=== PATIENT | male | born 1955 | race Hispanic/Latino ===

== ENCOUNTER 2018-07-31 13:16 | Inpatient (IN) | payer OTHER ==
[~2018-07-31] VITALS: Ht 172.7 cm; Wt 106.6 kg
[2018-07-31 14:00] VITALS: BP 126/74
[2018-07-31] MEDS ORDERED: ONDANSETRON HCL 4 MG/2 ML VIAL IVP PRN (14:30)
[2018-07-31] MEDS ORDERED: SODIUM CHLORIDE 0.9% 10 ML VIAL IVP SCH (14:30)
[2018-07-31] MEDS ORDERED: GUAIFENESIN SUGAR-FREE 100 MG/5 ML UDCUP PO PRN (14:30)
[2018-07-31] MEDS ORDERED: GUAIFENESIN-DM 200/20 MG 10 ML PO PRN (14:30)
[2018-07-31] MEDS ORDERED: DIPHENHYDRAMINE HCL 25 MG CAPSULE PO PRN (14:30)
[2018-07-31] MEDS ORDERED: POTASSIUM CHLORIDE 10% ELIXIR 20 MEQ/15 ML UDCUP PO PRN (14:30)
[2018-07-31] MEDS ORDERED: LACTULOSE 20 GM/30 ML UDCUP PO PRN (14:30)
[2018-07-31] MEDS ORDERED: GLUCAGON 1MG KIT 1 MG ML IM PRN (14:30)
[2018-07-31] MEDS ORDERED: MAG HYDROX/AL HYDROX/SIMETH ES 30 ML SUSP UDCUP PO PRN (14:30)
[2018-07-31] MEDS ORDERED: POTASSIUM CHLORIDE 20MEQ/100ML 100 ML IV PRN (14:30)
[2018-07-31] MEDS ORDERED: ZOLPIDEM TARTRATE 5 MG TAB PO PRN (14:30)
[2018-07-31] MEDS ORDERED: POTASSIUM CHLORIDE 20 MEQ ERTAB PO PRN (14:30)
[2018-07-31] MEDS ORDERED: LIDOCAINE HCL-MPF 1% 2ML VIAL IJ PRN (14:30)
[2018-07-31] MEDS ORDERED: DiphenhydrAMINE HCL 50 MG/ML VIAL IVP PRN (14:30)
[2018-07-31] MEDS ORDERED: ACETAMINOPHEN 325 MG TAB PO PRN ×2 (14:30)
[2018-07-31] MEDS ORDERED: NITROGLYCERIN 0.4 MG SL TAB SL PRN (14:30)
[2018-07-31] MEDS ORDERED: DEXTROSE 50%-WATER 50 ML DISP.SYRIN IV PRN (14:30)
[2018-07-31] MEDS ORDERED: IPRATROPIUM/ALBUTEROL SULFATE 3 ML SOLUTION IH PRN ×2 (14:30)
[2018-07-31 14:51] LABS: HEMATOCRIT 43.9 % (36-48); MEAN CORPUSCULAR HGB CONC 34.3 g/dL (32.0-36.0); MEAN CORPUSCULAR VOLUME 87.3 fL (79-99); PLATELET COUNT (AUTO) 283 K/uL (130-400); RED BLOOD CELL COUNT(AUTO) 5.03 MIL/uL (4.00-5.50); RED CELL DISTRIBUTION WIDTH 14.1 % (11.0-15.5); WHITE BLOOD COUNT (AUTO) 9.8 K/uL (4.8-10.8)
[2018-07-31 15:17] LABS: BILIRUBIN,TOTAL 0.3 mg/dL (0.2-1.0); CREATININE 1.5 mg/dL (0.5-1.5); POTASSIUM 4.2 mmol/L (3.5-5.1)
[2018-07-31] MEDS ORDERED: VANCOMYCIN 1GM+NS 250ML 250 ML IV SCH (16:15)
[2018-07-31] MEDS ORDERED: COMPOUND IV REFRIGERATED 1 EACH IVSOLN MISC PRN (16:15)
[2018-07-31] MEDS: INSULIN R PO SSI SQ SCH ×2 (16:30→21:00)
[2018-07-31] MEDS ORDERED: LISI1TAB13 PO (17:26)
[2018-07-31] MEDS ORDERED: METF-444 PO (17:26)
[2018-07-31 20:00] VITALS: BP 108/73
[2018-07-31] MEDS: ZOSYN 3.375GM+NS 50ML 50 ML IV SCH (21:20)
[2018-07-31] MEDS: FAMOTIDINE 20MG TAB 20 MG TAB PO SCH (21:20)
[2018-08-01] VITALS: BP 107/67
[2018-08-01 04:00] VITALS: BP 109/69
[2018-08-01] MEDS: ZOSYN 3.375GM+NS 50ML 50 ML IV SCH ×3 (05:01→22:00)
[2018-08-01] MEDS: INSULIN R PO SSI SQ SCH ×4 (05:51→21:00)
[2018-08-01 08:00] VITALS: BP 127/87
[2018-08-01] MEDS ORDERED: DOCUSATE SODIUM 100 MG CAP PO PRN (08:45)
[2018-08-01] MEDS: FAMOTIDINE 20MG TAB 20 MG TAB PO SCH ×2 (08:54→22:00)
[2018-08-01] MEDS: VANCOMYCIN 750MG + NS 250 ML IV SCH ×2 (08:55)
[2018-08-01] MEDS ORDERED: MUPI22O TP (09:54)
[2018-08-01 11:00] VITALS: BP 136/69
[2018-08-01 16:00] VITALS: BP 104/60
[2018-08-01 19:48] VITALS: BP 116/69
[2018-08-01] MEDS: MUPIROCIN OINTMENT 22 GM TUBE TP SCH (21:00)
[2018-08-02] VITALS: BP 108/61
[2018-08-02 04:08] LABS: MEAN CORPUSCULAR HEMOGLOBIN 29.9 pg (27.0-33.0); MEAN CORPUSCULAR HGB CONC 33.9 g/dL (32.0-36.0); MEAN CORPUSCULAR VOLUME 88.1 fL (79-99); PLATELET COUNT (AUTO) 228 K/uL (130-400); RED BLOOD CELL COUNT(AUTO) 4.77 MIL/uL (4.00-5.50); RED CELL DISTRIBUTION WIDTH 14.2 % (11.0-15.5)
[2018-08-02 04:10] VITALS: BP 129/64
[2018-08-02 04:22] LABS: CREATININE 1.1 mg/dL (0.5-1.5); POTASSIUM 4.1 mmol/L (3.5-5.1)
[2018-08-02] MEDS: ZOSYN 3.375GM+NS 50ML 50 ML IV SCH ×3 (05:11→21:00)
[2018-08-02] MEDS: INSULIN R PO SSI SQ SCH ×4 (07:04→21:00)
[2018-08-02 08:00] VITALS: BP 123/70
[2018-08-02] MEDS: FAMOTIDINE 20MG TAB 20 MG TAB PO SCH ×2 (10:31→21:42)
[2018-08-02] MEDS: HYDROCHLOROTHIAZIDE 25 MG TABLET PO SCH (10:31)
[2018-08-02] MEDS: LISINOPRIL 20 MG TABLET PO SCH (10:31)
[2018-08-02] MEDS: MUPIROCIN OINTMENT 22 GM TUBE TP SCH ×2 (10:42→21:44)
[2018-08-02] MEDS: VANCOMYCIN 750MG + NS 250 ML IV SCH ×2 (10:42)
[2018-08-02 11:00] VITALS: BP 122/80
[2018-08-02 16:00] VITALS: BP 117/73
[2018-08-02] MEDS: METFORMIN HCL 500 MG TABLET PO SCH (17:00)
[2018-08-02 19:30] VITALS: BP 129/79
[2018-08-03] VITALS (7 sets, daily range): BP systolic 109–131; BP diastolic 60–77
[2018-08-03] MEDS: ZOSYN 3.375GM+NS 50ML 50 ML IV SCH ×3 (05:04→21:19)
[2018-08-03] MEDS: INSULIN R PO SSI SQ SCH ×4 (07:30→21:00)
[2018-08-03] MEDS: METFORMIN HCL 500 MG TABLET PO SCH ×2 (10:25→18:33)
[2018-08-03] MEDS: HYDROCHLOROTHIAZIDE 25 MG TABLET PO SCH (10:25)
[2018-08-03] MEDS: LISINOPRIL 20 MG TABLET PO SCH (10:25)
[2018-08-03] MEDS: VANCOMYCIN 1.25 GM in SODIUM CHLORIDE 0.9% 250 ML IV SCH ×2 (10:25→21:18)
[2018-08-03] MEDS: FAMOTIDINE 20MG TAB 20 MG TAB PO SCH ×2 (10:25→21:51)
[2018-08-03] MEDS: MUPIROCIN OINTMENT 22 GM TUBE TP SCH ×2 (10:26→21:16)
[2018-08-03 18:32] LABS: HEMOGLOBIN A1C 6.3 % (4.0-6.0)
[2018-08-04 03:33] VITALS: BP 102/65
[2018-08-04 04:57] LABS: INR 1.08 (0.85-1.15); PARTIAL THROMBOPLASTIN TIME 34.5 SEC (26.3-35.5); PROTHROMBIN TIME 11.3 SEC (9.6-11.6)
[2018-08-04] MEDS: ZOSYN 3.375GM+NS 50ML 50 ML IV SCH ×3 (05:02→22:01)
[2018-08-04] MEDS: INSULIN R PO SSI SQ SCH ×4 (07:30→21:00)
[2018-08-04 08:03] VITALS: BP 108/66
[2018-08-04] MEDS: HYDROCHLOROTHIAZIDE 25 MG TABLET PO SCH (09:06)
[2018-08-04] MEDS: LISINOPRIL 20 MG TABLET PO SCH (09:06)
[2018-08-04] MEDS: METFORMIN HCL 500 MG TABLET PO SCH ×2 (09:06→17:00)
[2018-08-04] MEDS: FAMOTIDINE 20MG TAB 20 MG TAB PO SCH ×2 (09:06→22:01)
[2018-08-04] MEDS: MUPIROCIN OINTMENT 22 GM TUBE TP SCH ×2 (09:10→22:09)
[2018-08-04] MEDS: VANCOMYCIN 1.25 GM in SODIUM CHLORIDE 0.9% 250 ML IV SCH ×2 (10:37→22:01)
[2018-08-04 11:46] VITALS: BP 121/64
[2018-08-04 16:39] VITALS: BP 130/71
[2018-08-04 19:18] VITALS: BP 112/75
[2018-08-04 23:03] VITALS: BP 140/74
[2018-08-05 03:15] VITALS: BP_SYST 129; BP_SYST 130; BP_DIAS 68; BP_DIAS 73
[2018-08-05] MEDS: ZOSYN 3.375GM+NS 50ML 50 ML IV SCH ×3 (04:33→22:42)
[2018-08-05 08:19] VITALS: BP_SYST 124; BP_SYST 188; BP_DIAS 74; BP_DIAS 99
[2018-08-05] MEDS: HYDROCHLOROTHIAZIDE 25 MG TABLET PO SCH (08:46)
[2018-08-05] MEDS: METFORMIN HCL 500 MG TABLET PO SCH ×2 (08:46→17:00)
[2018-08-05] MEDS: FAMOTIDINE 20MG TAB 20 MG TAB PO SCH ×2 (08:46→21:04)
[2018-08-05] MEDS: LISINOPRIL 20 MG TABLET PO SCH (08:46)
[2018-08-05] MEDS: VANCOMYCIN 1.5 GM in SODIUM CHLORIDE 0.9% 250 ML IV SCH ×2 (08:54→21:05)
[2018-08-05] MEDS: MUPIROCIN OINTMENT 22 GM TUBE TP SCH ×2 (08:54→21:16)
[2018-08-05 12:05] VITALS: BP 152/87
[2018-08-05 16:10] VITALS: BP 138/78
[2018-08-05 19:00] VITALS: BP 139/72
[2018-08-05 23:21] VITALS: BP 116/77
[2018-08-06 03:47] VITALS: BP 125/88
[2018-08-06] MEDS: ZOSYN 3.375GM+NS 50ML 50 ML IV SCH ×3 (06:07→20:19)
[2018-08-06 07:30] VITALS: BP 120/78
[2018-08-06] MEDS: HYDROCHLOROTHIAZIDE 25 MG TABLET PO SCH (08:22)
[2018-08-06] MEDS: FAMOTIDINE 20MG TAB 20 MG TAB PO SCH ×2 (08:22→20:18)
[2018-08-06] MEDS: METFORMIN HCL 500 MG TABLET PO SCH ×2 (08:22→17:00)
[2018-08-06] MEDS: LISINOPRIL 20 MG TABLET PO SCH (08:22)
[2018-08-06] MEDS: MUPIROCIN OINTMENT 22 GM TUBE TP SCH ×2 (08:23→20:25)
[2018-08-06] MEDS: VANCOMYCIN 1.5 GM in SODIUM CHLORIDE 0.9% 250 ML IV SCH (08:23)
[2018-08-06 11:00] VITALS: BP 123/72
[2018-08-06 16:00] VITALS: BP 137/74
[2018-08-06 20:00] VITALS: BP 127/76
[2018-08-06] MEDS: VANCOMYCIN 1.75 GM in SODIUM CHLORIDE 0.9% 250 ML IV SCH (22:25)
[2018-08-07] VITALS: BP 123/73
[2018-08-07 04:00] VITALS: BP 131/78
[2018-08-07] MEDS: ZOSYN 3.375GM+NS 50ML 50 ML IV SCH ×2 (04:50→13:00)
[2018-08-07 07:30] VITALS: BP 125/84
[2018-08-07] MEDS: LISINOPRIL 20 MG TABLET PO SCH (09:45)
[2018-08-07] MEDS: METFORMIN HCL 500 MG TABLET PO SCH ×2 (09:46→17:57)
[2018-08-07] MEDS: FAMOTIDINE 20MG TAB 20 MG TAB PO SCH (09:46)
[2018-08-07] MEDS: HYDROCHLOROTHIAZIDE 25 MG TABLET PO SCH (09:46)
[2018-08-07] MEDS: MUPIROCIN OINTMENT 22 GM TUBE TP SCH (09:46)
[2018-08-07] MEDS: VANCOMYCIN 1.75 GM in SODIUM CHLORIDE 0.9% 250 ML IV SCH (09:59)
[2018-08-07 11:00] VITALS: BP 111/64
[2018-08-07 16:00] VITALS: BP 114/66
== END 2018-08-07 19:05 | disposition home or self-care (01) | DRG 603 ==
LOC: EDH 13:16 → EDSEX 13:50 → EDHIP 13:50 → 3DH 14:07
PROVIDERS: ADMIT Family Medicine; ATTEND Family Medicine
PROC: 02HV33Z Insertion of Infusion Device into Superior Vena Cava, Percutaneous Approach (ICD-10-PCS; principal; 2018-08-04)
DX: L02.31 Cutaneous abscess of buttock (principal); I10 Essential (primary) hypertension; E11.9 Type 2 diabetes mellitus without complications; B96.20 Unspecified Escherichia coli [E. coli] as the cause of diseases classified elsewhere; Z16.12 Extended spectrum beta lactamase (ESBL) resistance
CPT/HCPCS: 36415; 71045; 80048; 80053; 80202; 82948; 83036; 85027; 85610; 85730; 87040; 87070; 87076; 87077; 87186; 94664; J2543; J3370; J7030

== ENCOUNTER 2018-08-27 18:14 | Inpatient (IN) | payer OTHER ==
[~2018-08-27] VITALS: Ht 172.7 cm; Wt 106.6 kg
[~2018-08-27 18:14] MED LIST: LISI1TAB13 PO; METF-444 PO; MUPI22O TP
[2018-08-27 20:00] VITALS: BP 132/72
[2018-08-27] MEDS ORDERED: COMPOUND IV REFRIGERATED 1 EACH IVSOLN MISC PRN (20:45)
[2018-08-27] MEDS: INSULIN R PO SSI SQ SCH (21:00)
[2018-08-27] MEDS ORDERED: ZOLPIDEM TARTRATE 5 MG TAB PO PRN (21:00)
[2018-08-27] MEDS ORDERED: GLUCAGON 1MG KIT 1 MG ML IM PRN (21:00)
[2018-08-27] MEDS ORDERED: POTASSIUM CHLORIDE 10% ELIXIR 20 MEQ/15 ML UDCUP PO PRN (21:00)
[2018-08-27] MEDS ORDERED: GUAIFENESIN SUGAR-FREE 100 MG/5 ML UDCUP PO PRN (21:00)
[2018-08-27] MEDS ORDERED: POTASSIUM CHLORIDE 20MEQ/100ML 100 ML IV PRN (21:00)
[2018-08-27] MEDS ORDERED: LACTULOSE 20 GM/30 ML UDCUP PO PRN (21:00)
[2018-08-27] MEDS ORDERED: ONDANSETRON HCL 4 MG/2 ML VIAL IVP PRN (21:00)
[2018-08-27] MEDS ORDERED: IPRATROPIUM/ALBUTEROL SULFATE 3 ML SOLUTION IH PRN (21:00)
[2018-08-27] MEDS ORDERED: DEXTROSE 50%-WATER 50 ML DISP.SYRIN IV PRN (21:00)
[2018-08-27] MEDS ORDERED: LIDOCAINE HCL-MPF 1% 2ML VIAL IJ PRN (21:00)
[2018-08-27] MEDS ORDERED: DiphenhydrAMINE HCL 50 MG/ML VIAL IVP PRN (21:00)
[2018-08-27] MEDS ORDERED: ACETAMINOPHEN 325 MG TAB PO PRN ×2 (21:00)
[2018-08-27] MEDS ORDERED: NITROGLYCERIN 0.4 MG SL TAB SL PRN (21:00)
[2018-08-27] MEDS ORDERED: POTASSIUM CHLORIDE 20 MEQ ERTAB PO PRN (21:00)
[2018-08-27] MEDS ORDERED: CLONIDINE HCL 0.1 MG TABLET PO PRN (21:00)
[2018-08-27] MEDS ORDERED: MAG HYDROX/AL HYDROX/SIMETH ES 30 ML SUSP UDCUP PO PRN (21:00)
[2018-08-27] MEDS ORDERED: DIPHENHYDRAMINE HCL 25 MG CAPSULE PO PRN (21:00)
[2018-08-27] MEDS: AMIKACIN SULFATE IV SCH (21:08)
[2018-08-27] MEDS: FAMOTIDINE 20MG TAB 20 MG TAB PO SCH (21:08)
[2018-08-27] MEDS: SODIUM CHLORIDE 0.9% 1000ML 1,000 ML IV SCH (21:08)
[2018-08-27] MEDS: SODIUM CHLORIDE 0.9% IV SCH (21:08)
[2018-08-27 22:06] LABS: HEMATOCRIT 40.2 % (42-54); MEAN CORPUSCULAR HEMOGLOBIN 29.3 pg (27.0-33.0); MEAN CORPUSCULAR HGB CONC 33.8 g/dL (32.0-36.0); MEAN CORPUSCULAR VOLUME 86.6 fL (79-99); PLATELET COUNT (AUTO) 259 K/uL (130-400); RED BLOOD CELL COUNT(AUTO) 4.64 MIL/uL (4.50-6.20); RED CELL DISTRIBUTION WIDTH 13.8 % (11.0-15.5); WHITE BLOOD COUNT (AUTO) 8.9 K/uL (4.8-10.8)
[2018-08-27 22:31] LABS: ALBUMIN 3.6 g/dL (3.5-5.0); BILIRUBIN,TOTAL 0.3 mg/dL (0.2-1.0); CREATININE 1.1 mg/dL (0.5-1.5); POTASSIUM 3.6 mmol/L (3.5-5.1); TOTAL PROTEIN, SERUM 7.7 g/dL (6.0-8.3)
[2018-08-27 23:12] VITALS: BP 119/79
[2018-08-28 03:26] VITALS: BP 125/73
[2018-08-28] MEDS: SODIUM CHLORIDE 0.9% 1000ML 1,000 ML IV SCH ×3 (04:46→20:38)
[2018-08-28] MEDS: INSULIN R PO SSI SQ SCH ×4 (05:58→20:38)
[2018-08-28 07:00] VITALS: BP 133/80
[2018-08-28] MEDS: FAMOTIDINE 20MG TAB 20 MG TAB PO SCH ×2 (07:31→20:38)
[2018-08-28] MEDS: SODIUM CHLORIDE 0.9% IV SCH ×2 (07:31→20:38)
[2018-08-28] MEDS: AMIKACIN SULFATE IV SCH ×2 (07:31→20:38)
[2018-08-28] MEDS ORDERED: DOCUSATE SODIUM 100 MG CAP PO PRN (09:00)
[2018-08-28 11:00] VITALS: BP 122/69
[2018-08-28 16:00] VITALS: BP 164/97
[2018-08-28 20:00] VITALS: BP 112/65
[2018-08-28 23:43] VITALS: BP 121/78
[2018-08-29] VITALS (24 sets, daily range): BP systolic 105–144; BP diastolic 62–90
[2018-08-29] MEDS: SODIUM CHLORIDE 0.9% 1000ML 1,000 ML IV SCH ×2 (04:37→20:56)
[2018-08-29 04:46] LABS: HEMATOCRIT 41.9 % (42-54); MEAN CORPUSCULAR HEMOGLOBIN 29.3 pg (27.0-33.0); MEAN CORPUSCULAR HGB CONC 33.6 g/dL (32.0-36.0); MEAN CORPUSCULAR VOLUME 87.3 fL (79-99); PLATELET COUNT (AUTO) 233 K/uL (130-400); RED CELL DISTRIBUTION WIDTH 13.7 % (11.0-15.5); WHITE BLOOD COUNT (AUTO) 8.3 K/uL (4.8-10.8)
[2018-08-29 04:58] LABS: CREATININE 0.8 mg/dL (0.5-1.5)
[2018-08-29] MEDS ORDERED: METOCLOPRAMIDE 10 MG/2 ML VIAL IVP SCH (05:45)
[2018-08-29] MEDS: INSULIN R PO SSI SQ SCH ×4 (06:03→20:55)
[2018-08-29] MEDS ORDERED: SUCCINYLCHOLINE CHLORIDE 20 MG/ML 10 ML VIAL ONE (06:12)
[2018-08-29] MEDS ORDERED: MIDAZOLAM HCL 1 MG/ML 2ML VIAL ONE (06:12)
[2018-08-29] MEDS ORDERED: LIDOCAINE PF 2% 5ML ABBOJECT ONE (06:12)
[2018-08-29] MEDS ORDERED: FENTANYL CITRATE PF 50 MCG/1 ML 2ML VIAL ONE (06:13)
[2018-08-29] MEDS ORDERED: PROPOFOL 10 MG/ML 20ML VIAL IV ONE (06:13)
[2018-08-29] MEDS ORDERED: MORPHINE SULFATE 5 MG/ML VIAL IV PRN (08:30)
[2018-08-29] MEDS: HYDROCHLOROTHIAZIDE 25 MG TABLET PO SCH (09:00)
[2018-08-29] MEDS: LISINOPRIL 20 MG TABLET PO SCH (09:00)
[2018-08-29] MEDS: AMIKACIN SULFATE IV SCH ×2 (09:34→20:55)
[2018-08-29] MEDS: SODIUM CHLORIDE 0.9% IV SCH ×2 (09:34→20:55)
[2018-08-29] MEDS: FAMOTIDINE 20MG TAB 20 MG TAB PO SCH ×2 (09:47→20:55)
[2018-08-30] VITALS: BP 109/67
[2018-08-30 04:00] VITALS: BP 120/68
[2018-08-30] MEDS: SODIUM CHLORIDE 0.9% 1000ML 1,000 ML IV SCH ×2 (06:04→21:03)
[2018-08-30] MEDS: INSULIN R PO SSI SQ SCH ×4 (06:04→20:57)
[2018-08-30 06:21] LABS: HEMATOCRIT 41.7 % (42-54); MEAN CORPUSCULAR HEMOGLOBIN 28.5 pg (27.0-33.0); MEAN CORPUSCULAR HGB CONC 32.8 g/dL (32.0-36.0); MEAN CORPUSCULAR VOLUME 86.8 fL (79-99); PLATELET COUNT (AUTO) 212 K/uL (130-400); RED BLOOD CELL COUNT(AUTO) 4.81 MIL/uL (4.50-6.20); RED CELL DISTRIBUTION WIDTH 13.9 % (11.0-15.5); WHITE BLOOD COUNT (AUTO) 9.7 K/uL (4.8-10.8)
[2018-08-30 08:15] VITALS: BP 118/71
[2018-08-30] MEDS: HYDROCHLOROTHIAZIDE 25 MG TABLET PO SCH (08:50)
[2018-08-30] MEDS: LISINOPRIL 20 MG TABLET PO SCH (08:50)
[2018-08-30] MEDS: FAMOTIDINE 20MG TAB 20 MG TAB PO SCH ×2 (08:50→20:57)
[2018-08-30] MEDS: SODIUM CHLORIDE 0.9% IV SCH ×2 (08:57→20:57)
[2018-08-30] MEDS: AMIKACIN SULFATE IV SCH ×2 (08:57→20:57)
[2018-08-30 11:39] VITALS: BP_SYST 142; BP_SYST 148; BP_DIAS 77; BP_DIAS 79
[2018-08-30 16:09] VITALS: BP 125/71
[2018-08-30 19:00] VITALS: BP 133/74
[2018-08-31] VITALS (7 sets, daily range): BP systolic 130–150; BP diastolic 66–90
[2018-08-31] MEDS: SODIUM CHLORIDE 0.9% 1000ML 1,000 ML IV SCH ×3 (05:19→20:00)
[2018-08-31 05:43] LABS: HEMATOCRIT 40.2 % (42-54); MEAN CORPUSCULAR HEMOGLOBIN 29.4 pg (27.0-33.0); MEAN CORPUSCULAR HGB CONC 33.9 g/dL (32.0-36.0); MEAN CORPUSCULAR VOLUME 86.7 fL (79-99); PLATELET COUNT (AUTO) 202 K/uL (130-400); RED BLOOD CELL COUNT(AUTO) 4.64 MIL/uL (4.50-6.20); RED CELL DISTRIBUTION WIDTH 13.7 % (11.0-15.5); WHITE BLOOD COUNT (AUTO) 7.6 K/uL (4.8-10.8)
[2018-08-31] MEDS: INSULIN R PO SSI SQ SCH ×4 (06:39→20:08)
[2018-08-31] MEDS: HYDROCHLOROTHIAZIDE 25 MG TABLET PO SCH (09:23)
[2018-08-31] MEDS: LISINOPRIL 20 MG TABLET PO SCH (09:23)
[2018-08-31] MEDS: FAMOTIDINE 20MG TAB 20 MG TAB PO SCH ×2 (09:23→20:00)
[2018-08-31] MEDS: AMIKACIN SULFATE IV SCH ×2 (09:24→20:00)
[2018-08-31] MEDS: SODIUM CHLORIDE 0.9% IV SCH ×2 (09:24→20:00)
[2018-09-01 03:16] VITALS: BP 118/63
[2018-09-01] MEDS: SODIUM CHLORIDE 0.9% 1000ML 1,000 ML IV SCH ×2 (04:27→12:52)
[2018-09-01] MEDS: INSULIN R PO SSI SQ SCH ×4 (06:25→21:00)
[2018-09-01 08:14] VITALS: BP 152/86
[2018-09-01] MEDS: HYDROCHLOROTHIAZIDE 25 MG TABLET PO SCH (09:14)
[2018-09-01] MEDS: FAMOTIDINE 20MG TAB 20 MG TAB PO SCH ×2 (09:14→20:02)
[2018-09-01] MEDS: LISINOPRIL 20 MG TABLET PO SCH (09:14)
[2018-09-01] MEDS: SODIUM CHLORIDE 0.9% IV SCH ×2 (09:15→20:02)
[2018-09-01] MEDS: AMIKACIN SULFATE IV SCH ×2 (09:15→20:02)
[2018-09-01 12:02] VITALS: BP 123/69
[2018-09-01] MEDS: MEROPENEM 1 GM VIAL IVP SCH ×2 (12:30→17:04)
[2018-09-01 15:55] VITALS: BP 142/77
[2018-09-01 19:13] VITALS: BP 131/76
[2018-09-01 23:16] VITALS: BP 139/74
[2018-09-02] VITALS: BP 148/77
[2018-09-02] MEDS: MEROPENEM 1 GM VIAL IVP SCH ×3 (01:02→18:04)
[2018-09-02 03:18] VITALS: BP 133/79
[2018-09-02] MEDS: SODIUM CHLORIDE 0.9% 1000ML 1,000 ML IV SCH ×4 (05:42→20:11)
[2018-09-02] MEDS: INSULIN R PO SSI SQ SCH ×4 (05:43→21:00)
[2018-09-02 08:18] VITALS: BP 127/75
[2018-09-02] MEDS: SODIUM CHLORIDE 0.9% IV SCH ×2 (09:17→20:08)
[2018-09-02] MEDS: AMIKACIN SULFATE IV SCH ×2 (09:17→20:08)
[2018-09-02] MEDS: HYDROCHLOROTHIAZIDE 25 MG TABLET PO SCH (09:18)
[2018-09-02] MEDS: LISINOPRIL 20 MG TABLET PO SCH (09:18)
[2018-09-02] MEDS: FAMOTIDINE 20MG TAB 20 MG TAB PO SCH ×2 (09:18→20:08)
[2018-09-02 12:07] VITALS: BP 129/75
[2018-09-02 16:21] VITALS: BP 144/82
[2018-09-02 19:00] VITALS: BP 114/67
[2018-09-03] VITALS: BP 132/83
[2018-09-03] MEDS: MEROPENEM 1 GM VIAL IVP SCH ×3 (01:21→17:19)
[2018-09-03 03:51] VITALS: BP 125/71
[2018-09-03] MEDS: SODIUM CHLORIDE 0.9% 1000ML 1,000 ML IV SCH (04:14)
[2018-09-03 07:00] VITALS: BP 138/88
[2018-09-03] MEDS: INSULIN R PO SSI SQ SCH ×4 (07:30→20:29)
[2018-09-03] MEDS: SODIUM CHLORIDE 0.9% IV SCH ×2 (09:45→22:01)
[2018-09-03] MEDS: LISINOPRIL 20 MG TABLET PO SCH (09:45)
[2018-09-03] MEDS: AMIKACIN SULFATE IV SCH ×2 (09:45→22:01)
[2018-09-03] MEDS: FAMOTIDINE 20MG TAB 20 MG TAB PO SCH ×2 (09:45→22:00)
[2018-09-03] MEDS: HYDROCHLOROTHIAZIDE 25 MG TABLET PO SCH (09:46)
[2018-09-03 11:00] VITALS: BP 118/76
[2018-09-03 15:50] VITALS: BP 147/80
[2018-09-03 19:00] VITALS: BP 138/79
[2018-09-04] MEDS: MEROPENEM 1 GM VIAL IVP SCH ×2 (00:45→09:52)
[2018-09-04 04:00] VITALS: BP 134/84
[2018-09-04 05:05] LABS: HEMATOCRIT 42.3 % (42-54); MEAN CORPUSCULAR HEMOGLOBIN 29.5 pg (27.0-33.0); MEAN CORPUSCULAR VOLUME 86.9 fL (79-99); NUCLEATED RED BLOOD CELLS 0.1 % (0.0-0.19); PLATELET COUNT (AUTO) 254 K/uL (130-400); RED BLOOD CELL COUNT(AUTO) 4.87 MIL/uL (4.50-6.20); RED CELL DISTRIBUTION WIDTH 13.7 % (11.0-15.5); WHITE BLOOD COUNT (AUTO) 9.2 K/uL (4.8-10.8)
[2018-09-04] MEDS: INSULIN R PO SSI SQ SCH ×2 (06:20→11:30)
[2018-09-04 07:00] VITALS: BP 130/73
[2018-09-04] MEDS: AMIKACIN SULFATE IV SCH (09:49)
[2018-09-04] MEDS: SODIUM CHLORIDE 0.9% IV SCH (09:49)
[2018-09-04] MEDS: HYDROCHLOROTHIAZIDE 25 MG TABLET PO SCH (09:52)
[2018-09-04] MEDS: LISINOPRIL 20 MG TABLET PO SCH (09:53)
[2018-09-04] MEDS: FAMOTIDINE 20MG TAB 20 MG TAB PO SCH (09:53)
[2018-09-04 11:00] VITALS: BP 132/70
== END 2018-09-04 15:11 | DRG 572 ==
LOC: EDH 18:14 → EDHIP 19:00 → 3DH 19:45
PROVIDERS: ADMIT Family Medicine; ATTEND Family Medicine
PROC: 0JB90ZZ Excision of Buttock Subcutaneous Tissue and Fascia, Open Approach (ICD-10-PCS; principal; 2018-08-29 06:19)
DX: L02.31 Cutaneous abscess of buttock (principal); I10 Essential (primary) hypertension; Z16.12 Extended spectrum beta lactamase (ESBL) resistance; E11.9 Type 2 diabetes mellitus without complications; Z28.21 Immunization not carried out because of patient refusal; Z90.49 Acquired absence of other specified parts of digestive tract
CPT/HCPCS: 36415; 80048; 80053; 82948; 85027; 87070; 87076; 87077; 87186; 88304; 93005; 94664; A4218; J0278; J0330; J2001; J2185; J2250; J2704; J2765; J3010; J7030

== ENCOUNTER 2020-11-25 16:47 | Inpatient (IN) | payer OTHER ==
[~2020-11-25] VITALS: Ht 172.7 cm; Wt 99.8 kg
[~2020-11-25 16:47] MED LIST changes: +ATOR40TA69 PO; -LISI1TAB13 PO; +LISI1TAB53 PO; -MUPI22O TP; +OMEGA ACID ETHYL PO; +VITAMIN B12 PO; +VITAMIN D3 PO
[2020-11-25] MEDS ORDERED: AZITHROMYCIN 500MG+NS 250ML 250 ML IV ONE (19:04)
[2020-11-25] MEDS ORDERED: ALBUTEROL INHALER 90MCG/INH IH ONE (19:04)
[2020-11-25] MEDS ORDERED: DEXAMETHASONE SOD PHOSPHATE 10MG/ML 1ML VIAL ONE (19:04)
[2020-11-25] MEDS ORDERED: ENOXAPARIN SODIUM 120 MG/0.8ML SQ ONE (19:05)
[2020-11-25] MEDS ORDERED: FAMOTIDINE 20MG VIAL IV ONE (19:06)
[2020-11-25 19:36] LABS: BASOPHILS % (AUTO) 0.1 % (0.0-5.0); HEMATOCRIT 41.5 % (42-54); LYMPHOCYTES % (AUTO) 15.5 % (21.0-51.0); MEAN CORPUSCULAR HEMOGLOBIN 29.1 pg (27.0-33.0); MEAN CORPUSCULAR HGB CONC 34.2 g/dL (32.0-36.0); MONOCYTES % (AUTO) 6.1 % (3.0-13.0); NEUTROPHILS % (AUTO) 77.7 % (40.0-77.0); PLATELET COUNT (AUTO) 217 K/uL (130-400); RED BLOOD CELL COUNT(AUTO) 4.88 MIL/uL (4.50-6.20); RED CELL DISTRIBUTION WIDTH 13.1 % (11.0-15.5); WHITE BLOOD COUNT (AUTO) 6.8 K/uL (4.8-10.8)
[2020-11-25 19:52] LABS: CARBON DIOXIDE 30 mmol/L (21-32); CHLORIDE 92 mmol/L (101-111); GLOMERULAR FILTR. RATE CALC 80 mL/min (>60); GLUCOSE,RANDOM 121 mg/dL (70-105); INR 1.25 (0.85-1.15); POTASSIUM 3.8 mmol/L (3.5-5.1); PROTHROMBIN TIME 13.1 SEC (9.6-11.6); SODIUM SERUM 132 mmol/L (136-145); UREA NITROGEN, BLOOD 13 mg/dL (7-18)
[2020-11-25 19:54] LABS: PARTIAL THROMBOPLASTIN TIME 35.2 SEC (26.3-35.5)
[2020-11-25] MEDS: DOXYCYCLINE 100MG+NS 250ML 250 ML IV SCH (20:00)
[2020-11-25] MEDS: CEFTRIAXONE 1G VIAL IVP SCH (20:00)
[2020-11-25] MEDS ORDERED: ALBUTEROL INHALER 90MCG/INH IH PRN (20:00)
[2020-11-25] MEDS ORDERED: GUAIFENESIN-DM 200/20 MG 10 ML PO PRN (20:00)
[2020-11-25] MEDS ORDERED: ONDANSETRON 4MG INJ IV PRN (20:00)
[2020-11-25] MEDS ORDERED: ACETAMINOPHEN 325 MG TAB PO PRN ×2 (20:00)
[2020-11-25] MEDS ORDERED: GLUCAGON 1MG KIT 1 MG ML IM PRN (20:00)
[2020-11-25] MEDS ORDERED: ERGOCALCIFEROL (VITAMIN D2) 50,000 UNIT CAPSULE PO ONE (20:00)
[2020-11-25] MEDS ORDERED: PHARMACY COMMUNICATION MISC SCH (20:00)
[2020-11-25] MEDS ORDERED: DEXTROSE 50%-WATER 50 ML DISP.SYRIN IV PRN (20:00)
[2020-11-25 20:03] LABS: ALANINE AMINOTRANSFERASE 56 U/L (12-78); ASPARTATE AMINOTRANSFERASE 61 U/L (10-37); BILIRUBIN,TOTAL 0.6 mg/dL (0.2-1.0); CREATINE KINASE, TOTAL 211 U/L (21-232); LACTATE DEHYDROGENASE 513 U/L (81-234); MYOGLOBIN 82 ng/mL (10-92); TOTAL PROTEIN, SERUM 7.5 g/dL (6.0-8.3); TROPONIN I < 0.04 ng/mL (0.00-0.06)
[2020-11-25 20:37] LABS: ERYTHROCYTE SEDIMENTATION RATE 70 MM/HR (0-20)
[2020-11-25] MEDS: INSULIN HUMULIN R 100 UNIT/ML 3ML SQ SCH (21:00)
[2020-11-25] MEDS: FAMOTIDINE 20MG VIAL IV SCH (21:00)
[2020-11-25] MEDS: ACETYLCYSTEINE 600 MG CAPSULE PO SCH (21:00)
[2020-11-25 21:30] LABS: APPEARANCE,URINE Clear (CLEAR); BILIRUBIN,URINE Negative (NEGATIVE); COLOR,URINE Yellow (YELLOW); GLUCOSE, URINE (UA) Negative (NEGATIVE); KETONES,URINE Trace mg/dL (NEGATIVE); LEUKOCYTE ESTERASE ,URINE Negative (NEGATIVE); NITRATE,URINE Negative (NEGATIVE); OCCULT BLOOD,URINE Negative (NEGATIVE); PROTEIN,URINE POS 1+ mg/dL (NEGATIVE)
[2020-11-25] MEDS ORDERED: DOXYCYCLINE 100MG+NS 250ML 250 ML IV ONE (21:35)
[2020-11-25] MEDS ORDERED: ERGOCALCIFEROL (VITAMIN D2) 50,000 UNIT CAPSULE ONE (21:35)
[2020-11-25] MEDS ORDERED: ACETYLCYSTEINE 600 MG CAPSULE ONE (21:35)
[2020-11-25] MEDS ORDERED: CEFTRIAXONE 1G VIAL ONE (21:36)
[2020-11-25 21:44] LABS: BACTERIA,URINE Rare /HPF (None Seen); RBC,URINE None Seen /HPF (0-1); SQUAMOUS EPITHELIAL CELL,UR 0-2 /HPF (0-2); WBC,URINE None Seen /HPF (0-1)
[2020-11-26 04:36] LABS: HEMATOCRIT 38.5 % (42-54); LYMPHOCYTES % (AUTO) 14.7 % (21.0-51.0); MEAN CORPUSCULAR HEMOGLOBIN 28.9 pg (27.0-33.0); MEAN CORPUSCULAR HGB CONC 33.8 g/dL (32.0-36.0); MEAN CORPUSCULAR VOLUME 85.6 fL (79-99); MONOCYTES % (AUTO) 4.3 % (3.0-13.0); NEUTROPHILS % (AUTO) 80.6 % (40.0-77.0); PLATELET COUNT (AUTO) 230 K/uL (130-400); RED CELL DISTRIBUTION WIDTH 13.2 % (11.0-15.5); WHITE BLOOD COUNT (AUTO) 4.7 K/uL (4.8-10.8)
[2020-11-26 05:01] LABS: ALBUMIN 2.6 g/dL (3.5-5.0); BILIRUBIN,TOTAL 0.5 mg/dL (0.2-1.0); TOTAL PROTEIN, SERUM 6.9 g/dL (6.0-8.3)
[2020-11-26 05:08] LABS: CRP QUANTITATIVE 176.9 mg/L (0.00-9.0)
[2020-11-26 06:15] VITALS: BP 146/66
[2020-11-26] MEDS: INSULIN HUMULIN R 100 UNIT/ML 3ML SQ SCH ×4 (07:18→21:12)
[2020-11-26] MEDS: ACETYLCYSTEINE 600 MG CAPSULE PO SCH ×2 (08:02→21:11)
[2020-11-26] MEDS: FAMOTIDINE 20MG VIAL IV SCH ×2 (08:06→21:14)
[2020-11-26] MEDS: CEFTRIAXONE 1G VIAL IVP SCH (08:07)
[2020-11-26 08:43] VITALS: BP 125/64
[2020-11-26] MEDS ORDERED: ENOXAPARIN SODIUM 40 MG/0.4 ML SYRINGE SQ SCH (09:00)
[2020-11-26] MEDS ORDERED: ZINC SULFATE 220 CAPSULE PO SCH (09:00)
[2020-11-26] MEDS ORDERED: DEXAMETHASONE SOD PHOSPHATE 4 MG/ML 1ML VIAL IVP SCH (09:00)
[2020-11-26] MEDS ORDERED: ASCORBIC ACID 500 MG TAB PO SCH (09:00)
[2020-11-26] MEDS: DOXYCYCLINE 100MG+NS 250ML 250 ML IV SCH (09:42)
[2020-11-26 12:27] VITALS: BP 117/59
[2020-11-26] MEDS ORDERED: APIX2.5T PO (14:39)
[2020-11-26] MEDS ORDERED: DEXA6TAB7 PO (14:39)
[2020-11-26] MEDS ORDERED: FUROSEMIDE 20MG VIAL IV SCH (14:50)
[2020-11-26 17:08] VITALS: BP 123/63
[2020-11-26 20:00] VITALS: BP 132/64
== END 2020-11-26 22:00 | disposition home or self-care (01) | DRG 177 ==
LOC: EDH 16:47 → EDHIP 19:50 → 4AH 11-26 04:11
PROVIDERS: ADMIT Internal Medicine; ATTEND Internal Medicine
PROC: XW13325 Transfusion of Convalescent Plasma (Nonautologous) into Peripheral Vein, Percutaneous Approach, New Technology Group 5 (ICD-10-PCS; principal; 2020-11-26)
DX: U07.1 COVID-19 (principal); J12.89 Other viral pneumonia; I10 Essential (primary) hypertension; E11.9 Type 2 diabetes mellitus without complications; E66.01 Morbid (severe) obesity due to excess calories; R09.02 Hypoxemia; Z68.33 Body mass index [BMI] 33.0-33.9, adult; Z82.3 Family history of stroke; Z82.49 Family history of ischemic heart disease and other diseases of the circulatory system; Z83.3 Family history of diabetes mellitus; Z79.84 Long term (current) use of oral hypoglycemic drugs
CPT/HCPCS: 36415; 36430; 71045; 80053; 81001; 82550; 82728; 82948; 83605; 83615; 83874; 84145; 84484; 85025; 85378; 85610; 85651; 85730; 86140; 86900; 86901; 86927; 87040; 93005; 94760; G0378; J0456; J0696; J1100; J1650; J1815; J1940; J3490

== ENCOUNTER 2020-11-28 14:38 | Inpatient (IN) | payer OTHER ==
[~2020-11-28] VITALS: Ht 172.7 cm; Wt 97.1 kg
[~2020-11-28 14:38] MED LIST changes: +APIX2.5T PO; -ATOR40TA69 PO; +DEXA6TAB7 PO; -VITAMIN B12 PO; -VITAMIN D3 PO
[2020-11-28] MEDS ORDERED: ENOXAPARIN SODIUM 100 MG/1 ML SQ ONE (15:31)
[2020-11-28] MEDS ORDERED: SOLU-MEDROL 40MG VIAL ONE (15:31)
[2020-11-28] MEDS ORDERED: AZITHROMYCIN 500MG+NS 250ML 250 ML IV ONE (15:32)
[2020-11-28] MEDS ORDERED: FAMOTIDINE 20MG VIAL IV ONE ×2 (15:32→20:52)
[2020-11-28 16:05] LABS: BASOPHILS % (AUTO) 0.1 % (0.0-5.0); EOSINOPHILS % (AUTO) 0.1 % (0.0-8.0); HEMATOCRIT 40.2 % (42-54); LYMPHOCYTES % (AUTO) 8.1 % (21.0-51.0); MEAN CORPUSCULAR HGB CONC 34.1 g/dL (32.0-36.0); MONOCYTES % (AUTO) 5.5 % (3.0-13.0); NEUTROPHILS % (AUTO) 85.4 % (40.0-77.0); PLATELET COUNT (AUTO) 351 K/uL (130-400); RED BLOOD CELL COUNT(AUTO) 4.73 MIL/uL (4.50-6.20); RED CELL DISTRIBUTION WIDTH 13.2 % (11.0-15.5); WHITE BLOOD COUNT (AUTO) 14.4 K/uL (4.8-10.8)
[2020-11-28 16:18] LABS: INR 1.17 (0.85-1.15); PROTHROMBIN TIME 12.3 SEC (9.6-11.6)
[2020-11-28 16:19] LABS: PARTIAL THROMBOPLASTIN TIME 26.3 SEC (26.3-35.5)
[2020-11-28 16:27] LABS: CARBON DIOXIDE 27 mmol/L (21-32); CHLORIDE 97 mmol/L (101-111); GLOMERULAR FILTR. RATE CALC 80 mL/min (>60); GLUCOSE,RANDOM 119 mg/dL (70-105); POTASSIUM 3.5 mmol/L (3.5-5.1); SODIUM SERUM 137 mmol/L (136-145); UREA NITROGEN, BLOOD 27 mg/dL (7-18)
[2020-11-28 16:40] LABS: ALANINE AMINOTRANSFERASE 113 U/L (12-78); ALBUMIN 2.9 g/dL (3.5-5.0); ASPARTATE AMINOTRANSFERASE 58 U/L (10-37); BILIRUBIN,TOTAL 0.6 mg/dL (0.2-1.0); CREATINE KINASE, TOTAL 61 U/L (21-232); MYOGLOBIN 95 ng/mL (10-92); TROPONIN I < 0.04 ng/mL (0.00-0.06)
[2020-11-28] MEDS ORDERED: ALBUTEROL INHALER 90MCG/INH IH ONE (16:51)
[2020-11-28 18:03] LABS: ERYTHROCYTE SEDIMENTATION RATE 56 MM/HR (0-20)
[2020-11-28 18:20] LABS: APPEARANCE,URINE Clear (CLEAR); BILIRUBIN,URINE Negative (NEGATIVE); COLOR,URINE Yellow (YELLOW); GLUCOSE, URINE (UA) Negative (NEGATIVE); KETONES,URINE Trace mg/dL (NEGATIVE); LEUKOCYTE ESTERASE ,URINE Trace (NEGATIVE); NITRATE,URINE Negative (NEGATIVE); OCCULT BLOOD,URINE Negative (NEGATIVE); PROTEIN,URINE Trace mg/dL (NEGATIVE)
[2020-11-28] MEDS ORDERED: ACETAMINOPHEN 325 MG TAB PO PRN ×2 (18:30)
[2020-11-28] MEDS ORDERED: ONDANSETRON 4MG INJ IV PRN (18:30)
[2020-11-28] MEDS ORDERED: DEXAMETHASONE SOD PHOSPHATE 4 MG/ML 1ML VIAL IVP SCH (18:30)
[2020-11-28] MEDS ORDERED: PHARMACY COMMUNICATION MISC SCH (18:30)
[2020-11-28] MEDS: CEFTRIAXONE 1G VIAL IVP SCH (18:30)
[2020-11-28] MEDS ORDERED: ERGOCALCIFEROL (VITAMIN D2) 50,000 UNIT CAPSULE PO ONE (18:30)
[2020-11-28] MEDS ORDERED: DOXYCYCLINE 100MG+NS 250ML IV SCH (18:30)
[2020-11-28 18:57] LABS: BACTERIA,URINE Rare /HPF (None Seen); HYALINE CASTS, URINE 0-1 /LPF (0-1 /LPF); RBC,URINE 0-1 /HPF (0-1); SQUAMOUS EPITHELIAL CELL,UR Rare /HPF (0-2); WBC,URINE 0-1 /HPF (0-1)
[2020-11-28] MEDS ORDERED: CEFTRIAXONE 1G VIAL ONE (20:40)
[2020-11-28] MEDS: FAMOTIDINE 20MG VIAL IV SCH (21:00)
[2020-11-28] MEDS: DOXYCYCLINE 100MG+NS 250ML 250 ML IV SCH (21:00)
[2020-11-28] MEDS: ACETYLCYSTEINE 600 MG CAPSULE PO SCH (21:00)
[2020-11-29] MEDS ORDERED: ACETYLCYSTEINE 600 MG CAPSULE ONE ×3 (00:29→21:32)
[2020-11-29 04:57] LABS: ALANINE AMINOTRANSFERASE 93 U/L (12-78); ALBUMIN 2.6 g/dL (3.5-5.0); ASPARTATE AMINOTRANSFERASE 33 U/L (10-37); BILIRUBIN,TOTAL 0.4 mg/dL (0.2-1.0); CARBON DIOXIDE 27 mmol/L (21-32); CHLORIDE 97 mmol/L (101-111); GLOMERULAR FILTR. RATE CALC 80 mL/min (>60); GLUCOSE,RANDOM 237 mg/dL (70-105); LACTATE DEHYDROGENASE 351 U/L (81-234); POTASSIUM 4.1 mmol/L (3.5-5.1); SODIUM SERUM 134 mmol/L (136-145); TOTAL PROTEIN, SERUM 6.7 g/dL (6.0-8.3); UREA NITROGEN, BLOOD 27 mg/dL (7-18)
[2020-11-29] MEDS: CEFTRIAXONE 1G VIAL IVP SCH ×2 (06:30→18:30)
[2020-11-29 06:38] LABS: BASOPHILS % (AUTO) 0.1 % (0.0-5.0); HEMATOCRIT 38.1 % (42-54); LYMPHOCYTES % (AUTO) 8.7 % (21.0-51.0); MEAN CORPUSCULAR HEMOGLOBIN 28.8 pg (27.0-33.0); MEAN CORPUSCULAR HGB CONC 33.6 g/dL (32.0-36.0); MEAN CORPUSCULAR VOLUME 85.6 fL (79-99); MONOCYTES % (AUTO) 4.3 % (3.0-13.0); PLATELET COUNT (AUTO) 298 K/uL (130-400); RED BLOOD CELL COUNT(AUTO) 4.45 MIL/uL (4.50-6.20); RED CELL DISTRIBUTION WIDTH 13.2 % (11.0-15.5); WHITE BLOOD COUNT (AUTO) 9.3 K/uL (4.8-10.8)
[2020-11-29] MEDS ORDERED: ASCORBIC ACID 500 MG TAB ONE (08:04)
[2020-11-29] MEDS ORDERED: ZINC SULFATE 220 CAPSULE ONE (08:05)
[2020-11-29] MEDS ORDERED: ENOXAPARIN SODIUM 40 MG/0.4 ML SYRINGE SQ ONE (08:05)
[2020-11-29] MEDS ORDERED: DOXYCYCLINE 100MG+NS 250ML 250 ML IV ONE ×3 (08:06→21:32)
[2020-11-29] MEDS ORDERED: FAMOTIDINE 20MG VIAL IV ONE ×2 (08:06→21:33)
[2020-11-29] MEDS: FAMOTIDINE 20MG VIAL IV SCH ×2 (09:00→21:00)
[2020-11-29] MEDS: DOXYCYCLINE 100MG+NS 250ML 250 ML IV SCH ×2 (09:00→21:00)
[2020-11-29] MEDS: ACETYLCYSTEINE 600 MG CAPSULE PO SCH ×2 (09:00→21:00)
[2020-11-29] MEDS ORDERED: ENOXAPARIN SODIUM 40 MG/0.4 ML SYRINGE SQ SCH (09:00)
[2020-11-29] MEDS: ASCORBIC ACID 500 MG TAB PO SCH (09:00)
[2020-11-29] MEDS ORDERED: PHARMACY COMMUNICATION MISC SCH (11:15)
[2020-11-29] MEDS: LISINOPRIL 20 MG TABLET PO SCH (11:30)
[2020-11-29] MEDS ORDERED: LISINOPRIL 20 MG TABLET ONE (12:22)
[2020-11-29] MEDS: DEXAMETHASONE SOD PHOSPHATE 4 MG/ML 1ML VIAL IVP SCH (13:30)
[2020-11-29] MEDS ORDERED: DEXAMETHASONE SOD PHOSPHATE 10MG/ML 1ML VIAL ONE (17:25)
[2020-11-29] MEDS ORDERED: CEFTRIAXONE 1G VIAL ONE (17:26)
[2020-11-30] MEDS: DEXAMETHASONE SOD PHOSPHATE 4 MG/ML 1ML VIAL IVP SCH (01:30)
[2020-11-30] MEDS ORDERED: DEXAMETHASONE SOD PHOSPHATE 10MG/ML 1ML VIAL ONE ×2 (01:45→13:49)
[2020-11-30 04:38] LABS: BASOPHILS % (AUTO) 0.1 % (0.0-5.0); EOSINOPHILS % (AUTO) 0.1 % (0.0-8.0); HEMATOCRIT 37.7 % (42-54); LYMPHOCYTES % (AUTO) 7.1 % (21.0-51.0); MEAN CORPUSCULAR HEMOGLOBIN 28.6 pg (27.0-33.0); MEAN CORPUSCULAR HGB CONC 33.4 g/dL (32.0-36.0); MEAN CORPUSCULAR VOLUME 85.7 fL (79-99); MONOCYTES % (AUTO) 2.9 % (3.0-13.0); NEUTROPHILS % (AUTO) 88.9 % (40.0-77.0); PLATELET COUNT (AUTO) 305 K/uL (130-400); RED CELL DISTRIBUTION WIDTH 13.2 % (11.0-15.5); WHITE BLOOD COUNT (AUTO) 8.9 K/uL (4.8-10.8)
[2020-11-30 04:46] LABS: HEMOGLOBIN A1C 7.2 % (4.0-6.0)
[2020-11-30] MEDS ORDERED: GUAIFENESIN-DM 200/20 MG 10 ML ONE ×2 (05:01→21:49)
[2020-11-30 05:03] LABS: ALBUMIN 2.5 g/dL (3.5-5.0); BILIRUBIN,TOTAL 0.4 mg/dL (0.2-1.0); CREATININE 0.8 mg/dL (0.5-1.5); CRP QUANTITATIVE 60.2 mg/L (0.00-9.0); POTASSIUM 4.6 mmol/L (3.5-5.1); TOTAL PROTEIN, SERUM 6.6 g/dL (6.0-8.3)
[2020-11-30] MEDS ORDERED: CEFTRIAXONE 1G VIAL ONE ×2 (06:23→17:20)
[2020-11-30] MEDS ORDERED: ASCORBIC ACID 500 MG TAB ONE (08:46)
[2020-11-30] MEDS ORDERED: ACETYLCYSTEINE 600 MG CAPSULE ONE ×2 (08:46→21:49)
[2020-11-30] MEDS ORDERED: FAMOTIDINE 20MG TAB ONE (08:46)
[2020-11-30] MEDS ORDERED: ENOXAPARIN SODIUM 40 MG/0.4 ML SYRINGE SQ ONE (08:47)
[2020-11-30] MEDS ORDERED: ZINC SULFATE 220 CAPSULE ONE (08:47)
[2020-11-30] MEDS ORDERED: LISINOPRIL 20 MG TABLET ONE (08:47)
[2020-11-30] MEDS ORDERED: DOXYCYCLINE 100MG+NS 250ML 250 ML IV ONE ×2 (09:51→21:49)
[2020-11-30] MEDS ORDERED: REMDESIVIR (EUA) 520 200 MG in 0.9% NACL 250ML 250 ML IV ONE (16:00)
[2020-11-30] MEDS ORDERED: COMPOUND IV REFRIGERATED 1 EACH IVSOLN MISC PRN (16:00)
[2020-11-30] MEDS: ENOXAPARIN SODIUM 40 MG/0.4 ML SYRINGE SQ SCH (21:00)
[2020-11-30] MEDS ORDERED: FAMOTIDINE 20MG VIAL IV ONE (21:49)
[2020-12-01] MEDS ORDERED: DEXAMETHASONE SOD PHOSPHATE 10MG/ML 1ML VIAL ONE ×2 (00:42→12:01)
[2020-12-01] MEDS ORDERED: ENOXAPARIN SODIUM 40 MG/0.4 ML SYRINGE SQ ONE ×2 (00:42→22:56)
[2020-12-01 04:55] LABS: BASOPHILS % (AUTO) 0.1 % (0.0-5.0); EOSINOPHILS % (AUTO) 0.1 % (0.0-8.0); HEMATOCRIT 38.1 % (42-54); LYMPHOCYTES % (AUTO) 6.2 % (21.0-51.0); MEAN CORPUSCULAR HEMOGLOBIN 29.2 pg (27.0-33.0); MEAN CORPUSCULAR HGB CONC 33.9 g/dL (32.0-36.0); MEAN CORPUSCULAR VOLUME 86.2 fL (79-99); MONOCYTES % (AUTO) 4.6 % (3.0-13.0); NEUTROPHILS % (AUTO) 87.8 % (40.0-77.0); PLATELET COUNT (AUTO) 307 K/uL (130-400); RED BLOOD CELL COUNT(AUTO) 4.42 MIL/uL (4.50-6.20); RED CELL DISTRIBUTION WIDTH 13.1 % (11.0-15.5); WHITE BLOOD COUNT (AUTO) 11.4 K/uL (4.8-10.8)
[2020-12-01] MEDS ORDERED: GUAIFENESIN-DM 200/20 MG 10 ML ONE ×4 (05:07→22:55)
[2020-12-01 05:18] LABS: ALBUMIN 2.4 g/dL (3.5-5.0); BILIRUBIN,TOTAL 0.3 mg/dL (0.2-1.0); CREATININE 0.9 mg/dL (0.5-1.5); CRP QUANTITATIVE 33.4 mg/L (0.00-9.0); POTASSIUM 4.3 mmol/L (3.5-5.1); TOTAL PROTEIN, SERUM 6.3 g/dL (6.0-8.3)
[2020-12-01] MEDS: PHARMACY COMMUNICATION MISC SCH (06:00)
[2020-12-01] MEDS ORDERED: CEFTRIAXONE 1G VIAL ONE ×2 (06:36→17:26)
[2020-12-01] MEDS ORDERED: ENOXAPARIN SODIUM 60 MG/0.6 ML SQ ONE (08:24)
[2020-12-01] MEDS ORDERED: ACETYLCYSTEINE 600 MG CAPSULE ONE ×2 (08:24→22:55)
[2020-12-01] MEDS ORDERED: ZINC SULFATE 220 CAPSULE ONE (08:24)
[2020-12-01] MEDS ORDERED: DOXYCYCLINE 100MG+NS 250ML 250 ML IV ONE ×2 (08:24→22:56)
[2020-12-01] MEDS ORDERED: ASCORBIC ACID 500 MG TAB ONE (08:24)
[2020-12-01] MEDS ORDERED: FAMOTIDINE 20MG VIAL IV ONE ×2 (08:25→22:57)
[2020-12-01] MEDS ORDERED: LISINOPRIL 20 MG TABLET ONE (08:25)
[2020-12-01] MEDS: LISINOPRIL 20 MG TABLET PO SCH (09:00)
[2020-12-01] MEDS: ASCORBIC ACID 500 MG TAB PO SCH (09:00)
[2020-12-01] MEDS: ZINC SULFATE 220 CAPSULE PO SCH (09:00)
[2020-12-01] MEDS: REMDESIVIR (EUA) 520 100 MG in 0.9% NACL 250ML 250 ML IV SCH (16:00)
[2020-12-01] MEDS ORDERED: 0.9%NACL 50ML 50 ML IV ONE (17:27)
[2020-12-01] MEDS: CEFTRIAXONE 1G VIAL IVP SCH (18:30)
[2020-12-01] MEDS: FAMOTIDINE 20MG VIAL IV SCH (21:00)
[2020-12-01] MEDS: DOXYCYCLINE 100MG+NS 250ML 250 ML IV SCH (21:00)
[2020-12-01] MEDS: ENOXAPARIN SODIUM 40 MG/0.4 ML SYRINGE SQ SCH (21:00)
[2020-12-01] MEDS: ACETYLCYSTEINE 600 MG CAPSULE PO SCH (21:00)
[2020-12-02] MEDS: DEXAMETHASONE SOD PHOSPHATE 4 MG/ML 1ML VIAL IVP SCH (01:30)
[2020-12-02] MEDS ORDERED: DEXAMETHASONE SOD PHOSPHATE 4 MG/ML 1ML VIAL ONE (01:31)
[2020-12-02 03:25] VITALS: BP 130/75
[2020-12-02] MEDS: GUAIFENESIN-DM 200/20 MG 10 ML PO PRN ×4 (03:43→20:55)
[2020-12-02 05:27] LABS: BASOPHILS % (AUTO) 0.1 % (0.0-5.0); EOSINOPHILS % (AUTO) 0.1 % (0.0-8.0); HEMATOCRIT 37.5 % (42-54); MEAN CORPUSCULAR HEMOGLOBIN 28.6 pg (27.0-33.0); MEAN CORPUSCULAR HGB CONC 33.1 g/dL (32.0-36.0); MEAN CORPUSCULAR VOLUME 86.6 fL (79-99); MONOCYTES % (AUTO) 5.2 % (3.0-13.0); NEUTROPHILS % (AUTO) 87.2 % (40.0-77.0); PLATELET COUNT (AUTO) 306 K/uL (130-400); RED BLOOD CELL COUNT(AUTO) 4.33 MIL/uL (4.50-6.20); RED CELL DISTRIBUTION WIDTH 13.1 % (11.0-15.5); WHITE BLOOD COUNT (AUTO) 11.2 K/uL (4.8-10.8)
[2020-12-02 05:49] LABS: ALBUMIN 2.3 g/dL (3.5-5.0); BILIRUBIN,DIRECT 0.1 mg/dL (0.0-0.3); BILIRUBIN,TOTAL 0.3 mg/dL (0.2-1.0); CREATININE 0.9 mg/dL (0.5-1.5); CRP QUANTITATIVE 13.8 mg/L (0.00-9.0); POTASSIUM 4.7 mmol/L (3.5-5.1); TOTAL PROTEIN, SERUM 5.9 g/dL (6.0-8.3)
[2020-12-02] MEDS: CEFTRIAXONE 1G VIAL IVP SCH (06:29)
[2020-12-02] MEDS: INSULIN HUMULIN R 100 UNIT/ML 3ML SQ SCH ×4 (06:30→20:43)
[2020-12-02 08:00] VITALS: BP 133/75
[2020-12-02] MEDS: ZINC SULFATE 220 CAPSULE PO SCH (09:59)
[2020-12-02] MEDS: ACETYLCYSTEINE 600 MG CAPSULE PO SCH (09:59)
[2020-12-02] MEDS: FAMOTIDINE 20MG VIAL IV SCH ×2 (09:59→20:40)
[2020-12-02] MEDS: LISINOPRIL 20 MG TABLET PO SCH (09:59)
[2020-12-02] MEDS: DOXYCYCLINE 100MG+NS 250ML 250 ML IV SCH (10:00)
[2020-12-02] MEDS: ENOXAPARIN SODIUM 40 MG/0.4 ML SYRINGE SQ SCH ×2 (10:00→20:40)
[2020-12-02] MEDS: ASCORBIC ACID 500 MG TAB PO SCH (10:57)
[2020-12-02 12:00] VITALS: BP 120/68
[2020-12-02] MEDS: REMDESIVIR (EUA) 520 100 MG in 0.9% NACL 250ML 250 ML IV SCH (15:08)
[2020-12-02 16:00] VITALS: BP 106/54
[2020-12-02 22:05] VITALS: BP 102/53
[2020-12-03] VITALS: BP 143/69
[2020-12-03] MEDS: GUAIFENESIN-DM 200/20 MG 10 ML PO PRN ×4 (02:40→20:00)
[2020-12-03 03:43] VITALS: BP 133/62
[2020-12-03 05:02] LABS: BASOPHILS % (AUTO) 0.2 % (0.0-5.0); HEMATOCRIT 39.3 % (42-54); LYMPHOCYTES % (AUTO) 12.6 % (21.0-51.0); MEAN CORPUSCULAR HEMOGLOBIN 28.9 pg (27.0-33.0); MEAN CORPUSCULAR HGB CONC 32.8 g/dL (32.0-36.0); MEAN CORPUSCULAR VOLUME 87.9 fL (79-99); MONOCYTES % (AUTO) 8.1 % (3.0-13.0); NEUTROPHILS % (AUTO) 76.8 % (40.0-77.0); PLATELET COUNT (AUTO) 284 K/uL (130-400); RED BLOOD CELL COUNT(AUTO) 4.47 MIL/uL (4.50-6.20); RED CELL DISTRIBUTION WIDTH 13.2 % (11.0-15.5)
[2020-12-03 05:25] LABS: CRP QUANTITATIVE 15.7 mg/L (0.00-9.0)
[2020-12-03] MEDS: INSULIN HUMULIN R 100 UNIT/ML 3ML SQ SCH ×4 (06:21→21:00)
[2020-12-03] MEDS: ENOXAPARIN SODIUM 40 MG/0.4 ML SYRINGE SQ SCH ×2 (09:09→20:01)
[2020-12-03] MEDS: DEXAMETHASONE 4 MG TAB PO SCH (09:10)
[2020-12-03] MEDS: ZINC SULFATE 220 CAPSULE PO SCH (09:10)
[2020-12-03] MEDS: FAMOTIDINE 20MG VIAL IV SCH ×2 (09:10→20:00)
[2020-12-03] MEDS: ASCORBIC ACID 500 MG TAB PO SCH (09:10)
[2020-12-03 10:09] VITALS: BP 97/55
[2020-12-03] MEDS: LISINOPRIL 20 MG TABLET PO SCH (13:48)
[2020-12-03] MEDS: REMDESIVIR (EUA) 520 100 MG in 0.9% NACL 250ML 250 ML IV SCH (16:19)
[2020-12-03 17:36] VITALS: BP 109/61
[2020-12-03 20:00] VITALS: BP 107/66
[2020-12-04] VITALS (7 sets, daily range): BP systolic 75–140; BP diastolic 42–87
[2020-12-04] MEDS: GUAIFENESIN-DM 200/20 MG 10 ML PO PRN ×4 (02:52→20:30)
[2020-12-04 03:57] LABS: BASOPHILS % (AUTO) 0.1 % (0.0-5.0); EOSINOPHILS % (AUTO) 0.9 % (0.0-8.0); LYMPHOCYTES % (AUTO) 12.2 % (21.0-51.0); MEAN CORPUSCULAR HEMOGLOBIN 28.6 pg (27.0-33.0); MEAN CORPUSCULAR HGB CONC 33.3 g/dL (32.0-36.0); MEAN CORPUSCULAR VOLUME 85.7 fL (79-99); MONOCYTES % (AUTO) 6.9 % (3.0-13.0); NEUTROPHILS % (AUTO) 78.5 % (40.0-77.0); PLATELET COUNT (AUTO) 298 K/uL (130-400); RED BLOOD CELL COUNT(AUTO) 4.55 MIL/uL (4.50-6.20); RED CELL DISTRIBUTION WIDTH 13.3 % (11.0-15.5); WHITE BLOOD COUNT (AUTO) 8.8 K/uL (4.8-10.8)
[2020-12-04 04:13] LABS: CREATININE 0.9 mg/dL (0.5-1.5); CRP QUANTITATIVE 92.1 mg/L (0.00-9.0); POTASSIUM 4.5 mmol/L (3.5-5.1)
[2020-12-04] MEDS: PHARMACY COMMUNICATION MISC SCH (06:00)
[2020-12-04] MEDS: INSULIN HUMULIN R 100 UNIT/ML 3ML SQ SCH ×4 (06:18→21:24)
[2020-12-04] MEDS: FAMOTIDINE 20MG VIAL IV SCH ×2 (09:54→20:26)
[2020-12-04] MEDS: ZINC SULFATE 220 CAPSULE PO SCH (09:54)
[2020-12-04] MEDS: ASCORBIC ACID 500 MG TAB PO SCH (09:54)
[2020-12-04] MEDS: DEXAMETHASONE 4 MG TAB PO SCH (09:55)
[2020-12-04] MEDS: LISINOPRIL 20 MG TABLET PO SCH (09:55)
[2020-12-04] MEDS: ENOXAPARIN SODIUM 40 MG/0.4 ML SYRINGE SQ SCH (10:00)
[2020-12-04] MEDS: REMDESIVIR (EUA) 520 100 MG in 0.9% NACL 250ML 250 ML IV SCH (16:51)
[2020-12-04] MEDS: APIXABAN 2.5 MG TABLET PO SCH (20:26)
[2020-12-05] MEDS: PHARMACY COMMUNICATION MISC SCH (00:43)
[2020-12-05] MEDS: GUAIFENESIN-DM 200/20 MG 10 ML PO PRN ×5 (00:44→22:00)
[2020-12-05 04:00] VITALS: BP 156/85
[2020-12-05 04:55] LABS: BASOPHILS % (AUTO) 0.2 % (0.0-5.0); EOSINOPHILS % (AUTO) 0.5 % (0.0-8.0); HEMATOCRIT 37.2 % (42-54); LYMPHOCYTES % (AUTO) 14.1 % (21.0-51.0); MEAN CORPUSCULAR HEMOGLOBIN 28.8 pg (27.0-33.0); MEAN CORPUSCULAR HGB CONC 33.3 g/dL (32.0-36.0); MEAN CORPUSCULAR VOLUME 86.3 fL (79-99); MONOCYTES % (AUTO) 7.3 % (3.0-13.0); NEUTROPHILS % (AUTO) 76.1 % (40.0-77.0); PLATELET COUNT (AUTO) 280 K/uL (130-400); RED BLOOD CELL COUNT(AUTO) 4.31 MIL/uL (4.50-6.20); RED CELL DISTRIBUTION WIDTH 13.3 % (11.0-15.5); WHITE BLOOD COUNT (AUTO) 9.7 K/uL (4.8-10.8)
[2020-12-05 05:33] LABS: CARBON DIOXIDE 27 mmol/L (21-32); CHLORIDE 104 mmol/L (101-111); CREATININE 0.8 mg/dL (0.5-1.5); GLOMERULAR FILTR. RATE CALC 103 mL/min (>60); GLUCOSE,RANDOM 115 mg/dL (70-105); LACTATE DEHYDROGENASE 266 U/L (81-234); POTASSIUM 4.1 mmol/L (3.5-5.1); SODIUM SERUM 140 mmol/L (136-145); UREA NITROGEN, BLOOD 24 mg/dL (7-18)
[2020-12-05] MEDS: INSULIN HUMULIN R 100 UNIT/ML 3ML SQ SCH ×3 (06:01→20:16)
[2020-12-05] MEDS: FAMOTIDINE 20MG VIAL IV SCH ×2 (09:26→20:13)
[2020-12-05] MEDS: LISINOPRIL 20 MG TABLET PO SCH (09:28)
[2020-12-05] MEDS: APIXABAN 2.5 MG TABLET PO SCH ×2 (09:28→20:13)
[2020-12-05] MEDS: ASCORBIC ACID 500 MG TAB PO SCH (09:29)
[2020-12-05] MEDS: DEXAMETHASONE 4 MG TAB PO SCH (09:29)
[2020-12-05] MEDS: ZINC SULFATE 220 CAPSULE PO SCH (09:30)
[2020-12-05 12:09] VITALS: BP 84/44
[2020-12-05 12:38] VITALS: BP 98/49
[2020-12-05 16:00] VITALS: BP 138/72
[2020-12-05 20:00] VITALS: BP 109/56
[2020-12-05 23:50] VITALS: BP 126/63
[2020-12-06] MEDS: GUAIFENESIN-DM 200/20 MG 10 ML PO PRN ×6 (02:09→21:47)
[2020-12-06 04:42] LABS: BASOPHILS % (AUTO) 0.1 % (0.0-5.0); EOSINOPHILS % (AUTO) 0.2 % (0.0-8.0); HEMATOCRIT 38.3 % (42-54); LYMPHOCYTES % (AUTO) 15.7 % (21.0-51.0); MEAN CORPUSCULAR HEMOGLOBIN 28.6 pg (27.0-33.0); MEAN CORPUSCULAR HGB CONC 32.9 g/dL (32.0-36.0); NEUTROPHILS % (AUTO) 73.5 % (40.0-77.0); PLATELET COUNT (AUTO) 274 K/uL (130-400); RED CELL DISTRIBUTION WIDTH 13.3 % (11.0-15.5)
[2020-12-06 04:45] VITALS: BP 117/58
[2020-12-06 04:51] LABS: POTASSIUM 4.3 mmol/L (3.5-5.1)
[2020-12-06] MEDS: INSULIN HUMULIN R 100 UNIT/ML 3ML SQ SCH ×4 (05:44→21:00)
[2020-12-06 07:00] VITALS: BP 122/72
[2020-12-06] MEDS: FAMOTIDINE 20MG VIAL IV SCH ×2 (07:57→20:53)
[2020-12-06] MEDS: APIXABAN 2.5 MG TABLET PO SCH ×2 (07:59→20:53)
[2020-12-06] MEDS: ZINC SULFATE 220 CAPSULE PO SCH (07:59)
[2020-12-06] MEDS: ASCORBIC ACID 500 MG TAB PO SCH (07:59)
[2020-12-06] MEDS: DEXAMETHASONE 4 MG TAB PO SCH (07:59)
[2020-12-06 08:00] VITALS: BP 94/54
[2020-12-06] MEDS: LISINOPRIL 20 MG TABLET PO SCH (08:00)
[2020-12-06 12:00] VITALS: BP 85/49
[2020-12-06] MEDS ORDERED: APIX2.5T PO (12:10)
[2020-12-06] MEDS ORDERED: DEXA6TAB PO (12:10)
[2020-12-06 16:00] VITALS: BP 99/54
[2020-12-06 23:23] VITALS: BP 122/72
[2020-12-07 01:00] VITALS: BP 153/82
[2020-12-07] MEDS: GUAIFENESIN-DM 200/20 MG 10 ML PO PRN ×6 (02:05→22:10)
[2020-12-07 04:00] VITALS: BP 128/68
[2020-12-07 04:49] LABS: BASOPHILS % (AUTO) 0.1 % (0.0-5.0); EOSINOPHILS % (AUTO) 0.1 % (0.0-8.0); HEMATOCRIT 39.6 % (42-54); LYMPHOCYTES % (AUTO) 15.8 % (21.0-51.0); MEAN CORPUSCULAR HGB CONC 32.1 g/dL (32.0-36.0); MEAN CORPUSCULAR VOLUME 87.4 fL (79-99); MONOCYTES % (AUTO) 9.2 % (3.0-13.0); NEUTROPHILS % (AUTO) 73.7 % (40.0-77.0); PLATELET COUNT (AUTO) 257 K/uL (130-400); RED BLOOD CELL COUNT(AUTO) 4.53 MIL/uL (4.50-6.20); RED CELL DISTRIBUTION WIDTH 13.4 % (11.0-15.5); WHITE BLOOD COUNT (AUTO) 10.9 K/uL (4.8-10.8)
[2020-12-07 05:05] LABS: CRP QUANTITATIVE 9.1 mg/L (0.00-9.0); POTASSIUM 4.4 mmol/L (3.5-5.1)
[2020-12-07] MEDS: INSULIN HUMULIN R 100 UNIT/ML 3ML SQ SCH ×4 (06:49→21:00)
[2020-12-07 08:30] VITALS: BP 80/42
[2020-12-07] MEDS: LISINOPRIL 20 MG TABLET PO SCH (09:00)
[2020-12-07] MEDS: ZINC SULFATE 220 CAPSULE PO SCH (09:24)
[2020-12-07] MEDS: ASCORBIC ACID 500 MG TAB PO SCH (09:25)
[2020-12-07] MEDS: FAMOTIDINE 20MG VIAL IV SCH ×2 (09:27→20:04)
[2020-12-07] MEDS: DEXAMETHASONE 4 MG TAB PO SCH (09:28)
[2020-12-07] MEDS: APIXABAN 2.5 MG TABLET PO SCH ×2 (09:29→20:04)
[2020-12-07 11:00] VITALS: BP 112/65
[2020-12-07 16:00] VITALS: BP 115/73
[2020-12-07 19:00] VITALS: BP 121/69
[2020-12-08] VITALS: BP 138/72
[2020-12-08] MEDS: GUAIFENESIN-DM 200/20 MG 10 ML PO PRN ×3 (03:26→12:59)
[2020-12-08 04:00] VITALS: BP 134/73
[2020-12-08 06:33] LABS: BASOPHILS % (AUTO) 0.1 % (0.0-5.0); EOSINOPHILS % (AUTO) 0.1 % (0.0-8.0); LYMPHOCYTES % (AUTO) 17.3 % (21.0-51.0); MEAN CORPUSCULAR HEMOGLOBIN 28.7 pg (27.0-33.0); MEAN CORPUSCULAR HGB CONC 32.4 g/dL (32.0-36.0); MEAN CORPUSCULAR VOLUME 88.4 fL (79-99); MONOCYTES % (AUTO) 9.4 % (3.0-13.0); NEUTROPHILS % (AUTO) 72.3 % (40.0-77.0); PLATELET COUNT (AUTO) 234 K/uL (130-400); RED BLOOD CELL COUNT(AUTO) 4.64 MIL/uL (4.50-6.20); RED CELL DISTRIBUTION WIDTH 13.5 % (11.0-15.5); WHITE BLOOD COUNT (AUTO) 10.7 K/uL (4.8-10.8)
[2020-12-08 06:37] LABS: POTASSIUM 4.8 mmol/L (3.5-5.1)
[2020-12-08] MEDS: INSULIN HUMULIN R 100 UNIT/ML 3ML SQ SCH ×2 (06:54→11:30)
[2020-12-08 08:00] VITALS: BP 93/50
[2020-12-08] MEDS: DEXAMETHASONE 4 MG TAB PO SCH (08:31)
[2020-12-08] MEDS: APIXABAN 2.5 MG TABLET PO SCH (08:32)
[2020-12-08] MEDS: FAMOTIDINE 20MG VIAL IV SCH (08:32)
[2020-12-08] MEDS: ZINC SULFATE 220 CAPSULE PO SCH (08:32)
[2020-12-08] MEDS: ASCORBIC ACID 500 MG TAB PO SCH (08:32)
[2020-12-08 12:00] VITALS: BP 139/87
== END 2020-12-08 14:00 | disposition home or self-care (01) | DRG 177 ==
LOC: EDH 14:38 → EDHIP 18:30 → 4AH 12-02 02:29
PROVIDERS: ADMIT Internal Medicine; ATTEND Internal Medicine
PROC: XW13325 Transfusion of Convalescent Plasma (Nonautologous) into Peripheral Vein, Percutaneous Approach, New Technology Group 5 (ICD-10-PCS; principal; 2020-11-29)
PROC: XW033E5 Introduction of Remdesivir Anti-infective into Peripheral Vein, Percutaneous Approach, New Technology Group 5 (ICD-10-PCS; 2020-12-01)
DX: U07.1 COVID-19 (principal); J96.01 Acute respiratory failure with hypoxia; J12.82 Pneumonia due to coronavirus disease 2019; E87.1 Hypo-osmolality and hyponatremia; D68.69 Other thrombophilia; I10 Essential (primary) hypertension; E11.65 Type 2 diabetes mellitus with hyperglycemia; E78.5 Hyperlipidemia, unspecified; E66.01 Morbid (severe) obesity due to excess calories; Z87.891 Personal history of nicotine dependence; Z68.32 Body mass index [BMI] 32.0-32.9, adult; Z82.3 Family history of stroke; Z82.49 Family history of ischemic heart disease and other diseases of the circulatory system; Z83.3 Family history of diabetes mellitus; Z90.49 Acquired absence of other specified parts of digestive tract
CPT/HCPCS: 36415; 71045; 80048; 80053; 80076; 81001; 82550; 82728; 82948; 83036; 83605; 83615; 83874; 84145; 84484; 85025; 85378; 85610; 85651; 85730; 86140; 86900; 86901; 86927; 87040; 87088; 87426; 93005; 93970; 94760; G0378; J0456; J0696; J1100; J1650; J1815; J2920; J3490; J7050; J8540; U0003